=== PATIENT | female | born 1995 | race Caucasian/White ===

== ENCOUNTER 2018-08-26 19:34 | Emergency (ER) | payer OTHER ==
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
[2018-08-26 20:36] LABS: PLATELET COUNT, AUTOMATED 268 K/uL (150-450)
[2018-08-26] MEDS ORDERED: IOPAMIDOL 76% 75 ML INFUS BTL 75 ML ONE (20:47)
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
[2018-08-26] MEDS ORDERED: TRAM-420 PO (21:42)
[2018-08-26] MEDS ORDERED: CYCL10TA29 PO (21:42)
[2018-08-26] MEDS ORDERED: CYCLOBENZAPRINE HCL 10 MG TH PO ONE (21:45)
[2018-08-26] MEDS ORDERED: traMADol 50 MG TAB TH 2 TAB/BOTTLE PO ONE (21:45)
[2018-08-26 21:47] VITALS: BP 115/78
== END 2018-08-26 21:55 | disposition home or self-care (01) ==
LOC: ER 20:12
DX: S16.1XXA Strain of muscle, fascia and tendon at neck level, initial encounter (principal); S30.1XXA Contusion of abdominal wall, initial encounter
CPT/HCPCS: 71046; 72050; 74177; 84703; 85025; 99284; C9399; L0172; Q9967; 82040; 82247; 82310; 82374; 82435; 82565; 82947; 84075; 84132; 84155; 84295; 84450; 84460; 84520